=== PATIENT | female | born 1985 | race Caucasian/White ===

== ENCOUNTER → 2017-09-05 | Outpatient (CLI) | payer OTHER ==
[~2017-09-05] MED LIST: BIRTH CONTROL PILL; CIPROFLOXACIN500 M1 PO; PERCOCET 5-3251 EACH PO; TAMSULOSIN HCL0.4 MG PO; ZOFRAN ODT4 MG PO
== END | disposition home or self-care (01) ==
LOC: LABMALL 08:11 → RAD 16:03
DX: N97.9 Female infertility, unspecified (principal)